=== PATIENT | female | born 1990 | race Caucasian/White ===

== ENCOUNTER → 2018-04-05 | Emergency (ER) | payer BC ==
[~2018-04-05] VITALS: Ht 170.2 cm; Wt 50.8 kg
[~2018-04-05] MED LIST: KETOROLAC TROMETHAMINE 60 MG/2 ML VIAL IM ONE; LIDOCAINE 1% 10 MG/ML, 20 ML MDV INJ ONE; SODIUM BICARBONATE 8.4% VIAL 50 MEQ/50 ML VIAL INJ ONE
[2018-04-05 18:57] VITALS: BP_SYST 119
== END | disposition still patient (30) ==
LOC: SED 18:40
DX: S60.111A Contusion of right thumb with damage to nail, initial encounter (principal); Z88.0 Allergy status to penicillin; Z88.1 Allergy status to other antibiotic agents; Z88.8 Allergy status to other drugs, medicaments and biological substances; Z53.20 Procedure and treatment not carried out because of patient's decision for unspecified reasons; W23.0XXA Caught, crushed, jammed, or pinched between moving objects, initial encounter; Y93.89 Activity, other specified; Y92.89 Other specified places as the place of occurrence of the external cause; Y99.8 Other external cause status
CPT/HCPCS: 73140-TC; 99284